=== PATIENT | female | born 1950 | race Caucasian/White ===

== ENCOUNTER 2020-01-02 06:56 | Day surgery (SDC) | payer OTHER ==
--- NOTE | 2019-12-29 14:06 | RAD REPORT ---
EXAM DESCRIPTION: Ivon Pa And Lat (2 Views)12/29/2019 1:56 pm CLINICAL HISTORY: Preop for cardiac catheterization COMPARISON: 2008 FINDINGS: Mild right basilar opacity may represent subsegmental atelectasis, scarring or mild infilt rate. This can be monitored on a subsequent exam Lungs are mildly to moderately hyperaerated. Left lung appears clear The heart is borderline enlarged
[2019-12-29 14:31] LABS: Potassium 4.2 mmol/L (3.5-5.1)
[2019-12-29 14:47] LABS: Absolute Lymphocytes (CBC) 2.1 K/uL (0.7-4.9); Basophils % 0.7 % (0-1.3); Hematocrit 40.3 % (36.0-45.0); Lymphocytes % 24.1 % (15.3-44.8); MPV 9.3 fL (7.6-11.3); RBC Red Blood Cell Count 4.28 M/uL (3.86-4.86)
[2019-12-29 14:50] LABS: Protime INR 0.9
[~2020-01-02 06:56] MED LIST: ATROPINE SULF 1 MG/10 ML SYR IV ONE; FENTANYL CITR 100 MCG/2 ML ONE; HEPA 1000U/500MLS 2,000 UNIT/1,000 ML BAG IV ONE; HEPARIN 5000 UNIT/ML 1 ML VIAL ONE; LIDOCAINE 1% MPF 30 ML VIAL ONE; MIDAZOLAM HCL 2 MG/2 ML INJ ONE; NICARDIPINE HCL 25 MG/10 ML IV ONE; NITROGLYCERIN 100 MCG/ML SYR (for cath lab use only) IV ONE; NITROGLYCERIN/D5W 25 MG/250 ML BTL IV ONE
--- OUTSIDE RECORDS SUMMARY | 2020-01-02 06:59 | XMS REPORT | Continuity of Care Document ---
:1950 Author Organization [facility] Address [facility] Krish De León [address] [place] [address] Care Team Providers Name Role Phone Unavailable Unavailable Unavailable Problems Condition Condition Condition Status Onset Resolution Last Treating Co mments Source Name Details Category Date Date Treatment Clinician Date Mixed Mixed Problem Active [facility] hyperlipid hyperlipid Irene kes - emia emia [facility] Dempsey's Dempsey's Problem Active [facility] esophagus esophagus Luke s - with with [facility] dysplasia dysplasia l [facility] PSVT PSVT Problem Active [facility] (paroxysma (paroxysma Irene kes - l l [facility] supraventr supraventr l icular icular Outpati tachycardi tachycardi en t a) a) Clinics Other Other Problem Active [facility] obesity obesity [facility] - due to due to [facility] excess excess l calories calories Outpat i ent Clinics Body mass Body mass Problem Active [facility] index index [facility] - (BMI) (BMI) Memoria 31.0-31.9, 31.0-31.9, l adult adult [facility] Screening Screening Diagnosis Active [facility] mammogram, mammogram, Irene kes - encounter encounter Chase yamila for for l [facility] Allergies, Adverse Reactions, Alerts Allergy Allergy Status Severity Reaction(s) Onset Inactive Treating Comm ents Source Name Type Date Date Clinician Shrimp Adverse Active Swelling [facility] (Diagnos Reaction [facility] - tic) [facility] l [facility] penicill Adverse Active [facility] latex Adverse Active Blisters [facility] Medications Ordered Filled Start Stop Current Ordering Indication Dosage Frequency Signature Comments Components Source Medication Medication Date Date Medication? Clinician (SIG) Name Name Metoprolol Metoprolol Yes Yusef [address] [facility] Succinate Succinate 03-25 [facility] Luke s - ER ER 00:00: [facility] 00 l Outpat[facility] ent Clinics Pravastatin Pravastatin Yes Yusef [address] [facility] Sodium Sodium 9-13 [facility] - 00:00: [facility] Ibuprofen Ibuprofen Yes Yusef [address] [facility] 9-13 Ellis with food [facility] - 00:00: or milk as [facility]oria 00 needed l Outpati ent Clinics Montelukast Montelukast Yes Yusef [address] [facility] Sodium Sodium 9-13 [facility] - 00:[facility]: [facility] Lecithin Lecithin Yes Yusef [address] [facility] 9-13 [facility] - 00:[facility]: [facility] Zyrtec Zyrtec Yes Yusef [address] [facility] Allergy Allergy 9-13 [facility] - 00:[facility]: [facility] Symbicort Symbicort Yes Yusef [address] [facility] 9-13 [facility] - 00:[facility]: [facility] Aspirin Aspirin Yes Yusef [address] 9-13 [facility] - 00:[facility]: [facility] Vitamin B-6 Vitamin B-6 Yes Yusef [address] [facility] Fish Oil Fish Oil Yes Yusef [address] [facility] Magnesium Magnesium Yes Yusef [address] [facility] with a [facility] - meal [facility] l [facility]pat[facility] ent Clinics Esomeprazol Esomeprazol Yes Yusef [address] [facility] e Magnesium e Magnesium [facility] - [facility] Collagen Collagen Yes Yusef [address] [facility] Ultra Ultra [facility] - [facility] Womens 50+ Womens 50+ Yes Yusef [address] [facility] Multi Multi [facility] - Vitamin/Min Vitamin/Min M emoria l Outpati ent Clinics Calcium Calcium Yes Yusef [address] [facility] Citrate Citrate Ellis calc/300mg Irene kes - mag/10mcg [facility] D3 l Outpati ent Clinics Emergen-C Emergen-C Yes Yusef as [facility] Immune Immune [facility] directed [facility] - [facility] Probiotic Probiotic Yes Yusef as [facility] directed [facility]ics ProAir HFA ProAir HFA Yes Yusef [address] [facility] needed [facility] Procedures This patient has no known procedures. Encounters Start End Encounter Admission Attending Care Care Encounter Source Date/Time Date/Time Type Type Clinicians Facility Department ID 2019-11-22 2019-11-22 Outpatient Tio Jolley [id number] [facility] 11:40:00 11:40:00 [facility] 2019-08-25 2019-08-25 Outpatient Tio Kinseyt [id number] [facility] 09:00:00 09:00:00 [facility] [employer] [facility] Results This patient has no known results.
--- OUTSIDE RECORDS SUMMARY | 2020-01-02 06:59 | XMS REPORT ---
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
[2020-01-02] MEDS ORDERED: NA CHLORIDE 0.9% 500 ML ONE (07:00)
[2020-01-02] MEDS ORDERED: MIDAZOLAM HCL 2 MG/2 ML INJ ONE ×2 (07:37→07:43)
[2020-01-02] MEDS ORDERED: DIPHENHYDRAMINE 50 MG/ML VIAL ONE (07:46)
[2020-01-02] MEDS ORDERED: ASPIRIN 325 MG TAB ONE (08:23)
[2020-01-02] MEDS ORDERED: TICAGRELOR 90 MG TABLET PO ONE (08:24)
[2020-01-02] MEDS ORDERED: ZOLPIDEM TARTRATE 5 MG TABLET PO PRN (10:07)
[2020-01-02] MEDS: ASPIRIN 81 MG CHEWABLE TABLET PO SCH (10:15)
[2020-01-02] MEDS ORDERED: NA CHLORIDE 0.9% 1,000 ML IV SCH (11:00)
[2020-01-02 14:04] VITALS: O2SAT 97; BMI 32.6
[2020-01-02] MEDS: TICAGRELOR 90 MG TABLET PO SCH (21:40)
[2020-01-03 05:54] LABS: Absolute Lymphocytes (CBC) 2.3 K/uL (0.7-4.9); Basophils % 0.8 % (0-1.3); Hematocrit 38.1 % (36.0-45.0); Lymphocytes % 20.7 % (15.3-44.8); MPV 8.6 fL (7.6-11.3); RBC Red Blood Cell Count 4.04 M/uL (3.86-4.86)
[2020-01-03 06:13] LABS: Potassium 3.7 mmol/L (3.5-5.1)
[2020-01-03 06:30] LABS: Blood Morphology Comment NOT SEEN (NOT SEEN); Platelet Estimate ADEQ; Urine White Blood Cell Casts OK
[2020-01-03] MEDS: ASPIRIN 81 MG CHEWABLE TABLET PO SCH (08:00)
[2020-01-03] MEDS: TICAGRELOR 90 MG TABLET PO SCH (08:00)
[2020-01-03 08:02] VITALS: BP 140/70
[2020-01-03 09:12] VITALS: TEMP 97.8
== END 2020-01-03 08:47 | disposition home or self-care (01) ==
LOC: CCL 06:56 → 2ND 10:01 → CCL 01-03 08:47
DX: I25.110 Atherosclerotic heart disease of native coronary artery with unstable angina pectoris (principal); Z11.59 Encounter for screening for other viral diseases; I47.1 Supraventricular tachycardia; I10 Essential (primary) hypertension; E78.5 Hyperlipidemia, unspecified; J44.9 Chronic obstructive pulmonary disease, unspecified; K21.9 Gastro-esophageal reflux disease without esophagitis; E66.9 Obesity, unspecified; Z79.82 Long term (current) use of aspirin; Z88.0 Allergy status to penicillin; Z88.1 Allergy status to other antibiotic agents; Z91.040 Latex allergy status; Z91.013 Allergy to seafood; Z87.891 Personal history of nicotine dependence; Z82.49 Family history of ischemic heart disease and other diseases of the circulatory system
CPT/HCPCS: 85025 ×2; 80048 ×2; 36415 ×2; 85610; 80061; 85347; 85730; 71046; 93454; U0002; C1893; C1725; C9600; J1200; J1644 ×2; J2250 ×3; J3010; J7040